=== PATIENT | male | born 1960 | race American Indian/Alaskan Native ===

== ENCOUNTER 2020-05-23 08:08 | Outpatient (CLI) | payer BC ==
--- NOTE | 2020-05-23 10:16 | Cat Scan Report ---
CT ABDOMEN AND PELVIS WITHOUT CONTRAST INDICATION: C61 MALIGNANT NEOPLASM OF PROSTATE. TECHNIQUE: Axial CT images were obtained through the abdomen and pelvis without IV contrast. All CT scans at [facility] location are performed using CT dose reduction for ALARA by means of automated exposure control. COMPARISON: None available. FINDINGS: LOWER CHEST: No significant abnormality. LIVER: No significant abnormality. GALLBLADDER: No significant abnormality. BILE DUCTS: No significant abnormality. PANCREAS: No significant abnormality. SPLEEN: No significant abnormality. ADRENALS: 1.3 cm hypodense left adrenal nodule with a density of -13 is diagnostic for benign adrenal adenoma. RIGHT KIDNEY and URETER: No significant abnormality. LEFT KIDNEY and URETER: 4 nonobstructing left intrarenal stones, largest of which measures [address] reteral stone or hydronephrosis STOMACH and SMALL BOWEL: No significant abnormality. COLON: No significant abnormality. APPENDIX: No significant abnormality. PERITONEUM: No free fluid. No free air. No fluid collection. LYMPH NODES: No significant adenopathy. AORTA and ARTERIES: No significant abnormality. IVC and VEINS: No significant abnormality. URINARY BLADDER: No significant abnormality. REPRODUCTIVE ORGANS: Prostate contains multiple brachytherapy seeds. ADDITIONAL FINDINGS: None. SKELETAL SYSTEM: No significant abnormality. IMPRESSION: 1. No CT evidence for intra-abdominal, pelvic or skeletal metastases. 2. Left nephrolithiasis. 3. 1.3 cm left adrenal nodule is diagnostic for adenoma Signer Name: Osvaldo Greenberg MD Signed: 05/23/2020 10:11 AM Workstation Name: [email or web address]
--- NOTE | 2020-05-23 12:42 | Nuclear Medicine Report ---
Nuclear medicine whole body bone imaging study. History: C61 MALIGNANT NEOPLASM OF PROSTATE Comparison: No prior bone scans are available for comparison. Comparison is made with CT of the abd omen and pelvis from the same day. Procedure: The patient was administered 26 mCi of technetium 99m labeled MDP intravenously. Findings: There is bilateral, relatively symmetric articular activity which is most likely degenerati ve given the distribution and symmetry. No asymmetric radiotracer activity is seen within the included axial and appendicular skeleton. There is normal soft tissue activity in the kidneys and urinary bladder. Impression: No scintigraphic evidence of osseous metastatic disease. Presumed degenerative changes, a s above. Signer Name: Jimbo Walter MD Signed: 05/23/2020 12:38 PM Workstation Name: [id number]
== END 2020-05-23 08:09 | disposition home or self-care (01) ==
LOC: NM 08:08
PROVIDERS: ATTEND Urology
DX: C61 Malignant neoplasm of prostate (principal); N20.0 Calculus of kidney
CPT/HCPCS: 74176; 78306; A9503

== ENCOUNTER 2020-06-20 10:07 | Day surgery (SDC) | payer BC ==
[2020-06-18 12:48] LABS: Hematocrit 42.5 % (35.5-45.6); Hemoglobin 14.8 gm/dl (11.8-15.2); Mean Corpuscular HGB Conc 35 % (32-34); Mean Corpuscular Volume 83 fl (84-94); Platelet Count 224 K/mm3 (140-440); Red Blood Count 5.13 M/mm3 (3.65-5.03); Red Cell Distribution Width 13.5 % (13.2-15.2)
[2020-06-18 13:07] LABS: Alanine Aminotransferase 22 units/L (7-56); BUN/Creatinine Ratio 22; Blood Urea Nitrogen 20 mg/dL (9-20); Hemolysis Index 18
[~2020-06-20 10:07] MED LIST: SODIUM CHLORIDE 0.9% IRR 1,500 ML BOTTLE IR ONE; WATER FOR IRRIG STERILE 2000 ML IR ONE
[2020-06-20] MEDS ORDERED: LACTATED RINGERS 1,000 ML IV SCH (11:00)
[2020-06-20] MEDS ORDERED: HYDROmorphone 1 MG/1 ML INJ IV PRN ×2 (11:36)
[2020-06-20] MEDS ORDERED: ONDANSETRON 4 MG/2 ML INJ IV PRN (11:36)
--- NOTE | 2020-06-20 11:37 | Anesthesia Day of Surgery ---
Anesthesia Day of Surgery - Day of Surgery Patient Examined: Yes Patient H&P Reviewed: Yes Patient is NPO: Yes
--- NOTE | 2020-06-20 11:38 | Anesthesia Consultation ---
Anesthesia Consult and Med Hx Date of service: 06/20/20 - Airway Anesthetic Teeth Evaluation: Good ROM Head & Neck: Adequate Mental/Hyoid Distance: Adequate Mallampati Class: Class II Intubation Access Assessment: Good - Pre-Operative Health Status ASA Pre-Surgery Classification: ASA3 Proposed Anesthetic Plan: General - Pulmonary Hx Smoking: No Hx Asthma: Yes (DAILY AND PRN INHALERS. Stable. +2FS) Hx Sleep Apnea: Yes (DX SLEEP APNEA WITH CPAP USE.) - Cardiovascular System Hx Hypertension: Yes ("WATCHING" NO MEDS YET) - Central Nervous System Hx Psychiatric Problems: No - Other Systems Hx Cancer: Yes Hx Obesity: Yes
[2020-06-20] MEDS ORDERED: LIDOCAINE MPF (2%) 20 MG/1 ML VIAL 5 ML ONE (11:48)
[2020-06-20] MEDS ORDERED: ONDANSETRON 4 MG/2 ML INJ ONE (11:48)
[2020-06-20] MEDS ORDERED: dexAMETHasone 20 MG/5 ML VIAL ONE (11:48)
[2020-06-20] MEDS ORDERED: propofoL 200 MG/20 ML VIAL IV ONE (11:48)
[2020-06-20] MEDS ORDERED: fentaNYL 100 MCG/2 ML INJ ONE ×2 (11:48→14:00)
[2020-06-20] MEDS ORDERED: GLYCOPYRROLATE 0.4 MG/2 ML INJ ONE (11:48)
[2020-06-20] MEDS ORDERED: PHENYLEPHRINE/NS 1,000 MCG/10 ML SYRINGE (OR USE) IV ONE (11:48)
[2020-06-20] MEDS ORDERED: ceFAZolin/STERILE WATER 2 GM/20 ML SYRINGE IV NR (12:00)
[2020-06-20] MEDS ORDERED: ceFAZolin/Water 2 GM/20 ML 2 GM/20 ML SYRINGE IV ONE (12:06)
[2020-06-20] MEDS ORDERED: HYDROmorphone 1 MG/1 ML INJ ONE (13:00)
[2020-06-20] MEDS ORDERED: WATER FOR IRRIG STERILE 2000 ML IR ONE (13:18)
[2020-06-20] MEDS ORDERED: SODIUM CHLORIDE 0.9% IRR 1,500 ML BOTTLE IR ONE (13:59)
--- NOTE | 2020-06-20 14:27 | Post Operative Note ---
Date of procedure: 06/20/20 Pre-op diagnosis: rec cap Post-op diagnosis: same Findings: small gland Procedure: salvage cryo Anesthesia: GETA Surgeon: MATT BARTHOLOMEW Estimated blood loss: minimal Pathology: none Specimen disposition: to lab Disposition: PACU
--- NOTE | 2020-06-20 14:28 | Discharge Summary ---
Short Stay Discharge Plan Activity: other (no steraining ) Weight Bearing Status: Full Weight Bearing Diet: low fat, low cholesterol, low salt Wound: open to air, other (ice in RR) Special Instructions: other (ice) Durable Medical Equipment Needed Upon Discharge: other (teach persaud care ) Follow up with: PRIMARY CARE,MD [Primary Care Provider] - 7 Days
--- NOTE | 2020-06-20 18:13 | Post Anesthesia Evaluation ---
- Post Anesthesia Evaluation Patient Participated: Yes Airway Patent: Yes Stable Respiratory Function: Yes Nausea/Vomiting: No Temp > 96.8F: Yes Pain Manageable: Yes Adequeate Hydration: Yes Anesthesia Complications: No Block Receding Appropriately: Not Applicable Patient on Ventilator: No
[2020-06-20 20:35] VITALS: BP 152/90
--- NOTE | 2020-06-21 01:47 | Operative Report ---
PREOPERATIVE DIAGNOSIS: Recurrent prostate cancer. POSTOPERATIVE DIAGNOSIS: Recurrent prostate cancer. PROCEDURE: Cystoscopy, cryoablation of prostate. SURGEON: Raj Vargas MD ANESTHESIA: General. FINDINGS: This is a gentleman with recurrent prostate cancer at the left seminal vesical junction and base. He now presents for treatment. All options were discussed. He has had previous radiation therapy. DESCRIPTION OF PROCEDURE: The patient was brought to the operating room and placed on the operating table. Following induction of anesthesia, placed in lithotomy position, prepped and draped in usual sterile fashion. Garcia catheter was placed. The ultrasound was placed. We had a good image, very small prostate gland, approximately 15 grams. Lomax 1 and 2 were placed. There was more tissue on the left side than the right. We used 2 probes on the right, 3 on the left. Probe 5 and 6 were placed and then 4 was placed. Denonvilliers probe was easily placed as well. We also did the sphincter probe. The patient tolerated the procedure well. We checked multiple views. They were in excellent position, right by the base on the left, which was a focal point of the treatment. The catheter was removed. A wire coiled in the bladder under cystoscopic guidance and the warmer was placed under ultrasound guidance. The patient tolerated the procedure well. We rechecked the probes. The first freeze was carried out approximately 8 minutes starting at 1 and 2, coming down to 4 and then 5 and 6. Denonvilliers temperature probe got approximately 5 degrees. Second freeze, we were little more focused on the left side and after the full flow was carried out, second freeze was carried on symmetrical fashion, we just went a little longer. There was plenty of room by the rectum as well. We did a 15-minute, at least, warming pressure in the perineum. No significant bleeding. An 18 coude was easily placed. Urine was clear, brought to recovery room, no significant bleeding, in stable condition. JOB# [id number]
== END 2020-06-20 10:08 | disposition home or self-care (01) ==
LOC: OR 10:07
PROVIDERS: ATTEND Urology
DX: C61 Malignant neoplasm of prostate (principal); Z20.828 Contact with and (suspected) exposure to other viral communicable diseases; J45.909 Unspecified asthma, uncomplicated; G47.30 Sleep apnea, unspecified; Z91.013 Allergy to seafood; Z79.899 Other long term (current) drug therapy; Z98.890 Other specified postprocedural states; Z85.51 Personal history of malignant neoplasm of bladder
CPT/HCPCS: 36415; 55873; 80053; 85027; A4217; C2618; J0690; J1100; J1170; J2370; J2405; J2704; J3010; J7120; U0003